=== PATIENT | male | born 1970 | race Caucasian/White ===

== ENCOUNTER 2017-11-21 06:14 | Observation (INO) | payer OTHER ==
[2017-11-21] MEDS ORDERED: NS 1,000 ML IV ONE (06:21)
[2017-11-21] MEDS ORDERED: ONDANSETRON 4 MG/2 ML VIAL IVP ONE (06:25)
[2017-11-21] MEDS ORDERED: HYDROmorphONE/DILAUDID 2 MG/ML INJ IVP ONE (06:25)
--- NOTE | 2017-11-21 06:30 | EDPHY ---
H & P Source: Patient - Medical/Surgical History Hx Asthma: No Hx Chronic Respiratory Disease: No Hx Diabetes: No Hx Cardiac Disease: No Hx Renal Disease: No Hx Cirrhosis: No Hx Alcoholism: No Hx HIV/AIDS: No Hx Splenectomy or Spleen Trauma: No Other PMH: hernia repair as a child - Social History Smoking Status: Former smoker <Shaka Benjamin - Last Filed: 11/21/17 07:08> <LionKahlil Mead - Last Filed: 11/21/17 08:08> Time Seen by Provider: 11/21/17 06:26 HPI/ROS: HPI CHIEF COMPLAINT: Abdominal pain. HISTORY OF PRESENT ILLNESS: 47-year-old male, history of kidney stones, presents emergency room lower abdominal pain. Patient states he developed lower abdominal pain sudden onset around 4:00 a.m. Woke him from sleep. He felt nauseous he did vomit 1 time. Pain was rather intense in his lower abdomen. He denies 1 flank or the other. Denies back pain. Denies testicular pain or urinary symptoms. Additionally reports over the last few weeks he has had some lower abdominal pain and GI upset. However not this bad. This woke him up from sleep. He reports to me this lower abdominal pain feels very similar to his previous kidney stone a few years ago. Past Medical History: Kidney stones Past Surgical History: Denies significant surgical Social History: Denies drugs alcohol tobacco. Family History: Noncontributory ROS REVIEW OF SYSTEMS: 10 Systems were reviewed and negative with the exception of the elements mentioned in the history of present illness. Exam Constitutional triage nursing summary reviewed, vital signs reviewed, awake/ alert. Eyes normal conjunctivae and sclera, EOMI, PERRLA. HENT normal inspection, atraumatic, moist mucus membranes, no epistaxis, neck supple/ no meningismus, no raccoon eyes. Respiratory clear to auscultation bilaterally, normal breath sounds, no respiratory distress, no wheezing. Cardiovascular rate normal, regular rhythm, no murmur, no edema, distal pulses normal. Gastrointestinal soft, non-tender, no rebound, no guarding, normal bowel sounds, no distension, no pulsatile mass. Genitourinary no CVA tenderness. Musculoskeletal no midline vertebral tenderness, full range of motion, no calf swelling, no tenderness of extremities, no meningismus, good pulses, neurovascularly intact. Skin pink, warm, & dry, no rash, skin atraumatic. Neurologic awake, alert and oriented x 3, AAOx3, moves all 4 extremities equally, motor intact, sensory intact, CN II-XII intact, normal cerebellar, normal vision, normal speech. Psychiatric normal mood/affect. Heme/Lymph/Immune no lymphadenopathy. Differential diagnosis includes but is not limited to and in no particular order : Bowel obstruction, appendicitis, gallbladder disease, diverticulitis, colitis , enteritis, perforated viscus, gastritis, GERD, esophagitis, urinary tract infection, pyelonephritis, kidney stones Medical Decision Making: Plan for this patient IV establishment IV fluid bolus 1 L normal saline, IV Dilaudid 0.5 mg for pain control, 4 mg IV Zofran for nausea, check basic blood work, CT scan abdomen pelvis with IV contrast to help delineate lower abdominal pain. Check UA. Re-evaluation: 0700: Signed over to Dr. Seymour 7am. Follow up CT and re-eval. (Shaka Benjamin) 0700: I assumed care of this patient from Dr. Benjamin at shift change. Per the patient's , the patient has been complaining of generalized abdominal pain for the past 2 weeks. However, there was more acute pain that began at 04:00 this morning. 0728: I spoke with Dr. Swanson, radiologist, regarding patient's abdominopelvic CT. There is a large, obstructing, left proximal ureteral kidney stone. 0751: Reassessed patient and discussed imaging findings. He is no longer in pain. I have discussed plan to consult with urology as he most likely need a stent for the size of the stone. 0.4mg PO Flomax administered. 1999: I consulted with Dr. Brooke, urologist, regarding this patient. This patient will need to be admitted to the hospital for further evaluation. Dr. Brooke will consult on this patient during his admission. 2000: Reassessed patient and discussed plan for admission, which he is comfortable with. 2004: Consulted with hospitalist service, Dr. Malave accepts admission of this patient. (Kahlil Seymour) Constitutional: Initial Vital Signs Temperature (C) 36.6 C 11/21/17 06:15 Heart Rate 45 L 11/21/17 06:15 Respiratory Rate 18 11/21/17 06:15 Blood Pressure 173/89 H 11/21/17 06:15 O2 Sat (%) 97 11/21/17 06:15 O2 Delivery Mode Room Air O2 (L/minute) 2 Allergies/Adverse Reactions: No Known Allergies Allergy (Verified 01/16/14 08:58) Home Medications: Medication Instructions Recorded NK [No Known Home Meds] 11/21/17 Medical Decision Making - Diagnostics Imaging: Discussed imaging studies w/ call or contact centre manager Radiologist, I viewed and interpreted images myself <Kahlil Seymour - Last Filed: 11/21/17 08:08> - Diagnostics Imaging Results: Imaging Impressions Abdomen CT 11/21/17 06:26 Impression: 1. Mild left hydroureteronephrosis secondary to an 8 x 7 mm obstructing calculus proximal left ureter. 2. Right kidney demonstrates 2 nonobstructing calyceal calculi up to 5 mm in size in the lower pole. No right hydronephrosis. 3. No CT evidence of appendicitis, abscess or bowel obstruction. Findings and recommendations discussed with Emergency Department physician, Dr. Kahlil Seymour at 0 7:30 hour, 11/21/2017. Final report concurs with initial preliminary interpretation. - Data Points Laboratory Results: Laboratory Results 11/21/17 06:30 11/21/17 06:30 11/21/17 11/21/17 11/21/17 07:37 06:30 06:30 WBC 8.14 10^3/uL 10^3/uL (3.80-9.50) RBC 5.45 10^6/uL 10^6/uL (4.40-6.38) Hgb 16.0 g/dL g/dL (13.7-17.5) Hct 46.2 % % (40.0-51.0) MCV 84.8 fL fL (81.5-99.8) MCH 29.4 pg pg (27.9-34.1) MCHC 34.6 g/dL g/dL (32.4-36.7) RDW 13.2 % % (11.5-15.2) Plt Count 199 10^3/uL 10^3/uL (150-400) MPV 9.4 fL fL (8.7-11.7) Neut % (Auto) 67.9 % % (39.3-74.2) Lymph % (Auto) 22.6 % % (15.0-45.0) [place] % (Auto) 5.9 % % (4.5-13.0) Eos % (Auto) 2.8 % % (0.6-7.6) Baso % (Auto) 0.4 % % (0.3-1.7) Nucleat RBC Rel Count 0.0 % % (0.0-0.2) Absolute Neuts (auto) 5.53 10^3/uL 10^3/uL (1.70-6.50) Absolute Lymphs (auto) 1.84 10^3/uL 10^3/uL (1.00-3.00) Absolute Monos (auto) 0.48 10^3/uL 10^3/uL (0.30-0.80) Absolute Eos (auto) 0.23 10^3/uL 10^3/uL (0.03-0.40) Absolute Basos (auto) 0.03 10^3/uL 10^3/uL (0.02-0.10) Absolute Nucleated RBC 0.00 10^3/uL 10^3/uL (0-0.01) Immature Gran % 0.4 % % (0.0-1.1) Immature Gran # 0.03 10^3/uL 10^3/uL (0.00-0.10) Sodium 141 mEq/L mEq/L (135-145) Potassium 3.9 mEq/L mEq/L (3.3-5.0) Chloride 105 mEq/L mEq/L (97-110) Carbon Dioxide 27 mEq/l mEq/l (22-31) Anion Gap 9 mEq/L mEq/L (8-16) BUN 13 mg/dL mg/dL (7-23) Creatinine 1.2 mg/dL mg/dL (0.7-1.3) Estimated GFR > 60 Glucose 114 mg/dL H mg/dL (70-100) Calcium 9.2 mg/dL mg/dL (8.5-10.4) Total Bilirubin 0.7 mg/dL mg/dL (0.1-1.4) Conjugated Bilirubin 0.2 mg/dL mg/dL (0.0-0.5) Unconjugated Bilirubin 0.5 mg/dL mg/dL (0.0-1.1) AST 28 IU/L IU/L (17-59) ALT 32 IU/L IU/L (21-72) Alkaline Phosphatase 66 IU/L IU/L (38-126) Total Protein 7.8 g/dL g/dL (6.3-8.2) Albumin 4.5 g/dL g/dL (3.5-5.0) Lipase 88 IU/L IU/L (23-300) Urine Color YELLOW Urine Appearance CLEAR Urine pH 6.0 (5.0-7.5) Ur Specific [place] > 1.035 H (1.002-1.030) Urine Protein 1+ H (NEGATIVE) Urine Ketones NEGATIVE (NEGATIVE) Urine Blood 3+ H (NEGATIVE) Urine Nitrate NEGATIVE (NEGATIVE) Urine Bilirubin NEGATIVE (NEGATIVE) Urine Urobilinogen NEGATIVE EU EU (0.2-1.0) Ur Leukocyte Esterase NEGATIVE (NEGATIVE) Urine RBC 50-182 /hpf H /hpf (0-3) Urine WBC 3-5 /hpf H /hpf (0-3) Ur Epithelial Cells NONE SEEN /lpf /lpf (NONE-1+) Urine Mucus 1+ /lpf /lpf (NONE-1+) Urine Glucose NEGATIVE (NEGATIVE) Medications Given: Discontinued Medications Hydromorphone HCl (Dilaudid) 0.5 mg IVP EDNOW ONE Stop: 11/21/17 06:26 Last Admin: 11/21/17 06:38 Dose: 0.5 mg Sodium Chloride (Ns) 1,000 mls @ 0 mls/hr IV EDNOW ONE; Wide Open PRN Reason: Protocol Stop: 11/21/17 06:22 Last Admin: 11/21/17 06:36 Dose: 1,000 mls Ondansetron HCl (Zofran) 4 mg IVP EDNOW ONE Stop: 11/21/17 06:26 Last Admin: 11/21/17 06:38 Dose: 4 mg Tamsulosin HCl (Flomax) 0.4 mg PO EDNOW ONE Stop: 11/21/17 07:58 Last Admin: 11/21/17 08:06 Dose: 0.4 mg Departure <Shaka Benjamin - Last Filed: 11/21/17 07:08> <Kahlil Seymour - Last Filed: 11/21/17 08:08> - Departure Disposition: [facility] Clinical Impression: Calculus of left kidney Abdominal pain Qualifiers: Abdominal location: left upper quadrant Qualified Code(s): R10.12 - Left upper quadrant pain Condition: Fair Instructions: Acute Abdominal Pain (ED) Referrals: Amy Rodríguez MD [Primary Care Provider] - As per Instructions
[2017-11-21 06:43] LABS: PLATELET COUNT 199 10^3/uL (150-400)
[2017-11-21] MEDS ORDERED: IOPAMIDOL (ISOVUE-300) 100 ML BTL ONE (06:59)
[2017-11-21] MEDS ORDERED: TAMSULOSIN HCL 0.4 MG CAP PO ONE (07:57)
[2017-11-21] MEDS ORDERED: ONDANSETRON DISINTEGRATING 4 MG TAB PO PRN (10:37)
[2017-11-21] MEDS ORDERED: HYDROmorphONE/DILAUDID 1 MG/ML INJ IVP PRN (10:37)
[2017-11-21] MEDS ORDERED: PROMETHAZINE HCL 25 MG/ML INJ IVP PRN ×2 (10:37→16:33)
[2017-11-21] MEDS ORDERED: ONDANSETRON 4 MG/2 ML VIAL IVP PRN ×2 (10:37→16:33)
[2017-11-21] MEDS ORDERED: ACETAMINOPHEN 325 MG TAB PO PRN (10:37)
[2017-11-21] MEDS ORDERED: NS 1,000 ML IV SCH (10:45)
--- NOTE | 2017-11-21 14:13 | GHP ---
DATE OF ADMISSION: 11/21/2017 CHIEF COMPLAINT: Abdominal pain. HISTORY OF PRESENT ILLNESS: Mr. Guevara is a 47-year-old male, history of kidney stones, presents to the emergency room with complaints of lower abdominal pain, states that this pain developed at about 4:00 a.m. and woke him from his sleep. He felt nauseous and vomited once. He denies any back pain. He denies any testicular pain or urinary symptoms. He denies any shortness of breath, dyspnea or ch est pain. He states that his pain feels similar to previous kidney stones in the past. PAST MEDICAL HISTORY: Kidney stone. PAST SURGICAL HISTORY: Hernia repair. SOCIAL HISTORY: The patient denies any alcohol or tobacco. FAMILY HISTORY: Reviewed and benign. REVIEW OF SYSTEMS: A comprehensive 10-point review of systems is noted and negative other than HPI. PHYSICAL EXAMINATION: GENERAL: The patient is alert. VITAL SIGNS: Afebrile at 36.5, pulse is 45, respiratory rate 16, blood pressure is 125/83, saturating 95% on room air. HEENT: Normocephalic and atraumatic. Mucosal membranes are moist. Pupils equal, round, reactive to light. NECK: Supple. RESPIRATORY: Lungs are clear to auscultation bilaterally. No rhonchi or wheezes noted. CARDIOVASCU LAR: S1, S2. No gallop or murmur appreciated. GASTROINTESTINAL: Abdomen bowel sounds are positive . Soft and nontender. There is no guarding or rigidity noted. EXTREMITIES: Within normal limits. There is no clubbing or cyanosis appreciated. SKIN: Without rashes or lesions. NEUROLOGICAL: The patient is focally intact with no abnormalities identified. ALLERGIES: None. HOME MEDICATIONS: None. LABORATORY EVALUATION: Benign. RADIOLOGICAL STUDIES: CT of the abdomen reviewed shows mild left hydroureteronephrosis secondary to an 8 x 7 mm obstructing calculi, the right kidney demonstrates 2 nonobstructing calculi. ASSESSMENT AND PLAN: Mr. Guevara is 47-year-old male admitted to the hospital secondary to obstructin g nephrolithiasis. He is going to receive a consultation from urology with intervention being perfor med today. He will be admitted, supportive management, and further action will be taken as needed du ring the patient's hospitalization. Deep venous thrombosis prophylaxis will be held at this time giv en the patient's need for intervention. I have discussed the patient's care with Dr. Kahlil Seymour of the emergency department, Mr. Guevara will be admitted under observation status as I anticipate his h ospitalization will be less than 48 hours. /[id number]/MODL
--- NOTE | 2017-11-21 15:25 | PDCONSULT ---
Community Service Director Note: [facility] left ureteral stone, pain Requested by Kahlil Seymour MD ER HPI 47M presented w week of feeling not well in his abdomen. Last night , pain in abdomen stayed and he came to ER where CT scan w contrast showed left obstructing proximal ureteral stone w associated hydro. Also nonobs rignt renal stone. Bilateral renal cysts. He has had emesis last night but no fevers or chills. Hx stone in the 2 yrs ago, he passed this on his own. PMH Hernia repair Stones ROS 10pt ROS performed, as stated in HPI, otherwise neg. FH/SH noncontributory PE AFVSS Gen NAD A&O CV regular Lungs Normal effort Abd soft Ext warm Labs: UA WBC 6-10, +RBCs. WBC 8 Cr 1.2 A/P Left ureteral stone, hydro, pain To the OR for left URS, laser stent. Discussed benefits of stone removal and obstruction relief. Discussed risks of bleeding, infection, pain, injury to urethral, bladder, ureter, injury to surrounding tissues, need for subsequent procedures. He understands and agrees to proceed. Discussed presence of right sided stones, we could treat those at a later date. Ivonne Brooke MD Urologic Surgery [facility]
[2017-11-21] MEDS ORDERED: MIDAZOLAM 2 MG/2 ML VIAL IVP ONE (15:30)
[2017-11-21] MEDS ORDERED: ceFAZolin 3 GM in D5W 100 ML IV ONE (15:31)
--- NOTE | 2017-11-21 15:31 | PDANEPAE ---
ANE History of Present Illness urolithiasis ANE Past Medical History - Pulmonary History Hx Oxygen in Use at Home: No Hx Sleep Apnea: No Sleep Apnea Screening Result - Last Documented: Negative - Endocrine History Hx Diabetes: No ANE Review of Systems Review of Systems: ANE Patient History - Allergies Allergies/Adverse Reactions: No Known Allergies Allergy (Verified 11/21/17 08:35) - Home Medications Home Medications: NK [No Known Home Meds] 11/21/17 [Last Taken Unknown] - NPO status NPO Since - Liquids (Date): 11/21/17 NPO Since - Liquids (Time): 00:00 NPO Since - Solids (Date): 11/21/17 NPO Since - Solids (Time): 00:00 - Smoking Hx Smoking Status: Former smoker ANE Labs/Vital Signs - Labs Result Diagrams: 11/21/17 06:30 11/21/17 06:30 - Vital Signs Blood Pressure: 125/83 Heart Rate: 45 Respiratory Rate: 16 O2 Sat (%): 95 Height: 180.34 cm Weight: 104.326 kg ANE Physical Exam - Airway Neck exam: FROM Mallampati Score: Class 2 Mouth exam: normal dental/mouth exam - Pulmonary Pulmonary: no respiratory distress - Cardiovascular Cardiovascular: regular rate and rhythym - ASA Status ASA Status: I ANE Anesthesia Plan Anesthesia Plan: general endotracheal anesthesia
[2017-11-21] MEDS ORDERED: ROCURONIUM 50 MG/5 ML VIAL ONE (15:33)
[2017-11-21] MEDS ORDERED: fentaNYL 100 MCG/2 ML INJ ONE ×3 (15:33→16:26)
[2017-11-21] MEDS ORDERED: PROPOFOL/EMULSION 500 MG/50 ML BOTTLE IV ONE (15:34)
[2017-11-21] MEDS ORDERED: IOPAMIDOL (ISOVUE-M 300) 15 ML VIAL ONE ×2 (15:36)
[2017-11-21] MEDS ORDERED: LIDOCAINE 2% JELLY 20 ML (UROJECT) ONE ×2 (15:36→15:44)
--- NOTE | 2017-11-21 15:39 | ASMTCMCOM ---
CM Note CM Note Notes: Pt was admitted with a L ureteral stone. Hx of kidney stones. Surgery planned. Pt lives with his in [place]. CM will follow for any d/c needs. D/C plan: TBD but anticipate home independent Date Signed: 11/21/2017 03:38 PM Electronically Signed By:NIRMALA Sethi
[2017-11-21] MEDS ORDERED: CEFAZOLIN 1 GM/DEXTROSE/50 ML BAG IV ONE (15:43)
[2017-11-21] MEDS ORDERED: CEFAZOLIN 2 GM/DEXTROSE/100 ML BAG IV ONE (15:44)
[2017-11-21] MEDS ORDERED: ceFAZolin 2 GM/DEXTROSE 100 ML IV ONE ×2 (15:45→16:00)
[2017-11-21] MEDS ORDERED: MIDAZOLAM 2 MG/2 ML VIAL ONE (15:49)
[2017-11-21] MEDS ORDERED: HYDROCODONE/APAP 5/325 TAB PO PRN (16:33)
[2017-11-21] MEDS ORDERED: NALOXONE HCL 0.4 MG/ML INJ IVP PRN (16:33)
[2017-11-21] MEDS ORDERED: fentaNYL 100 MCG/2 ML INJ IVP PRN (16:33)
[2017-11-21] MEDS ORDERED: DIAZEPAM 5 MG/ML 1 ML SYR IVP PRN (16:33)
[2017-11-21] MEDS ORDERED: MEPERIDINE 25 MG/0.5 ML AMP IVP PRN (16:33)
[2017-11-21] MEDS ORDERED: ESMOLOL HCL 100 MG/10 ML VIAL IV ONE (16:54)
--- NOTE | 2017-11-21 16:55 | POSTOPPROG ---
Post Op Note Date of Operation: 11/21/17 Surgeon: Ivonne Brooke Anesthesia: GET(General Endotracheal) Pre-op Diagnosis: left ureteral stone Post-op Diagnosis: same Indication: left ureteral stone, pain Procedure: cysto, L URS, laser, stent, RGP, fluoroscopy Findings: left stone dusted, ureter very edematous from stone Inf/Abcess present in the surg proc area at time of surgery?: No Depth: Organ Space (Urologic system) Complications: None, patient tolerated procedure well
[2017-11-21] MEDS ORDERED: HYDROmorphONE/DILAUDID 2 MG/ML INJ IVP PRN (17:00)
[2017-11-21] MEDS ORDERED: HYDROmorphONE/DILAUDID 2 MG/ML INJ ONE (17:04)
--- NOTE | 2017-11-21 17:06 | POSTANESTH ---
Post Anesthetic Evaluation Cardiovascular Status: Normal, Stable Respiratory Status: Normal, Stable Level of Consciousness/Mental Status: Can Participate in Eval Pain Control: Adequate, Prn Tx Ordered Nausea/Vomiting Control: Adequate, Prn Tx Ordered Complications Possibly Related to Anesthesia: None Noted
[2017-11-21] MEDS: HYDROmorphONE/DILAUDID 2 MG/ML INJ IVP PRN ×3 (17:07→17:39)
[2017-11-21] MEDS ORDERED: HYDROCODONE/APAP 5/325 TAB ONE (17:41)
[2017-11-21] MEDS: TAMSULOSIN HCL 0.4 MG CAP PO SCH (18:18)
[2017-11-21] MEDS: OXYBUTYNIN CHLORIDE 5 MG TAB PO PRN ×2 (18:18→22:42)
[2017-11-21] MEDS: PHENAZOPYRIDINE HCL 200 MG TAB PO PRN (18:24)
[2017-11-21] MEDS: HYDROmorphone HCL 0.5 MG/0.5 ML SYR IVP PRN ×2 (19:37→23:28)
[2017-11-21] MEDS: KETOROLAC 15 MG/1 ML SDV IVP SCH ×2 (20:16→23:27)
[2017-11-22] MEDS: HYDROmorphone HCL 0.5 MG/0.5 ML SYR IVP PRN ×2 (03:34→07:43)
--- NOTE | 2017-11-22 05:20 | GOP ---
DATE OF OPERATION: 11/21/2017 SURGEON: Ivonne Brooke MD ANESTHESIA: General. PREOPERATIVE DIAGNOSIS: Left ureteral stone. POSTOPERATIVE DIAGNOSIS: Left ureteral stone. PROCEDURE PERFORMED: 1. Cystoscopy. 2. Left ureteroscopy. 3. Laser lithotripsy. 4. Placement of stent. 5. Retrograde pyelogram. 6. Intraoperative fluoroscopy. FINDINGS: A left proximal stone that was lasered, and the left ureter where the stone was lodged was very edematous and inflamed from the stone. SPECIMENS: None. INDICATIONS: The patient had over a week of abdominal pain that he thought was GI-related. It worsened last night and he presented to the ER where a CT with contrast was obtained of the abdomen and pelvis, and it showed a left proximal ureteral stone with associated hydronephrosis. He elected to have the stone treated. The rationale, risks, and benefits were discussed in detail including risks that were bleeding, infection, pain, injury to the urethra, the bladder, the ureter, inability to gain access to the stone, need for subsequent procedures. He understood these and agreed to proceed. DESCRIPTION OF PROCEDURE: The patient was taken back to the cystoscopy suite, placed on the cystoscopy table in a supine position. General anesthesia induced without complications. Time-out performed and core measures satisfied including placement of a Naif Hugger, SCDs, and administration of 3 g Ancef antibiotics. He was brought to the end of the table, placed in dorsal lithotomy position. All pressure points padded. Genitalia draped and prepped in the standard surgical fashion with Betadine. A rigid cystoscope easily cannulated his urethral meatus and was advanced atraumatically into the bladder. Osorio cystoscopy performed and there were no lesions, cellules, trabeculations, or abnormalities in the bladder. The left and right ureteral orifices were in their expected anatomical positions. Attention was focused on the left ureteral orifice and a retrograde pyelogram was performed, and there was a slight area of filling defect in the proximal ureter, which is approximately where the stone should have been, according to the CT scan just a few hours ago, so two 0.035 Glidewires were then advanced into the left collecting system. A ureteral access sheath was advanced over a Glidewire with fluoroscopic guidance up to the level where I felt that stone was seen on retrograde pyelogram. The flexible scope was advanced through the sheath and I did see the ureteral stone at that point. There was significant edema in ureter where the stone was, and the stone had bits of tissue that it had sloughed off from rubbing against the ureter around it indicating that the stone had significantly irritated the wall of the ureter. I advanced a laser fiber to the level of the stone and was able to start to dust the stone into very tiny fragments. I advanced a basket to remove begin to extract some of the small fragments. I basketed a small fragment, and began to remove my basket and scope and had friction at the entry of the access sheath when I was removing the scope through the sheath. I was able to externalize the basket and scope but the stone had not come with the basket. I went back up the access sheath and noted that the ureter appeared even more edematous and possibly traumatized from the scope removal at the access sheath. At this point , I felt it would be safest to not continue with further removal or dusting of the stone and just place a stent and possibly return later for stone clearance. I do feel the stones fragments were dusted mainly and what remained was small but I could not confirm this visually. I had a safety wire in place. I removed the sheath with the scope, examining the more distal wall of the ureter , and it was normal appearing. The safety wire was still up and I was able to back load it into the cystoscope, and then placed a 6-Maltese multivariable stent with fluoroscopic and cystoscopic guidance. There was a nice curl in the renal pelvis, a nice curl in the bladder. At this point, his bladder was then emptied and the procedure was considered complete. He was awakened from anesthesia and transferred to PACU in good condition. He will need the stent in place for at least 2 weeks, after which we can re- evaluate stone burden and possibly pursue further stone clearance. COMPLICATIONS: None. The patient tolerated the procedure well. /[id number]/MODL MTDD
[2017-11-22] MEDS: OXYBUTYNIN CHLORIDE 5 MG TAB PO PRN (05:25)
[2017-11-22] MEDS: KETOROLAC 15 MG/1 ML SDV IVP SCH ×2 (05:25→11:34)
[2017-11-22] MEDS: TAMSULOSIN HCL 0.4 MG CAP PO SCH (05:38)
[2017-11-22] MEDS: PHENAZOPYRIDINE HCL 200 MG TAB PO PRN (05:38)
[2017-11-22 08:27] VITALS: BP 132/92
--- NOTE | 2017-11-22 10:03 | ASDISCHSUM ---
Discharge Information Plan Status:Home with No Needs Medically Cleared to Leave:11/22/2017 Discharge Date:11/22/2017 CM D/C Disposition:Home, Routine, Self-Care ADT D/C Disposition:Home, Routine, Self-Care Projected Discharge Date:11/22/2017 Transportation at D/C: Discharge Delay Reason: Follow-Up Date:11/22/2017 Discharge Slot: Final Diagnosis: Placement Information Patient Contact Information Contact Name:IGNACIO Relationship: Address:[address] City:[place] Alternate Phone: [facility]/Zip Code:[place] [address] Email: Financial Information Financial Class:HMO and PPO Plans Primary Plan Desc:[employer] Primary Plan Number:[id number] Secondary Plan Desc: Secondary Plan Number: Assessment Information LACE LACE Length of stay for Answers: 1 day current admission Comorbidities - select Answers: Other Notes: kidney stones all that apply # of Emergency department Answers: 1-2 visits in the last 6 months Score: 3 Date Signed: 11/22/2017 10:02 AM Electronically Signed By:Jennifer De La Cruz RN [facility] Progress Note CM Note CM Note Notes: Pt was admitted with a L ureteral stone. Hx of kidney stones. Surgery planned. Pt lives with his in [place]. CM will follow for any d/c needs. D/C plan: TBD but anticipate home independent Date Signed: 11/21/2017 03:38 PM Electronically Signed By:NIRMALA Sethi Intervention Information
--- NOTE | 2017-11-22 10:04 | ASMTCMCOM ---
CM Note CM Note Notes: Patient medically cleared for discharge. No needs identified. CM available should needs arise. Plan: Home independently. Date Signed: 11/22/2017 10:04 AM Electronically Signed By:Jennifer De La Cruz RN
--- NOTE | 2017-11-22 14:02 | GDS ---
DISCHARGE DIAGNOSIS: Nephrolithiasis, status post lithotripsy. CONSULTANTS: Dr. Ivonne Brooke, Urology. PROCEDURES: 1. Cystoscopy with left ureteroscopy, laser lithotripsy, and ureteral stent placement with retrograd e pyelogram performed November 21, 2017, by Dr. Ivonne Brooke. A left proximal stone was dusted. The ureter where the stone was lodged was very edematous and inflamed from stone. HISTORY OF PRESENT ILLNESS: For details, please see history and physical dated November 21, 2017. In brief, the patient is a 47-year-old male with a history of prior kidney stones who presented to [facility] emergency department with abdominal pain, nausea, and vomiting. CT demonstrated a 7 x 8 mm obstruc ting calculi in the mid left ureter with hydroureteronephrosis. He had no fevers, chills, or signs o f infection. He was admitted to the hospital for further management. HOSPITAL COURSE: Patient was admitted to the med/surgical unit. Urology consult obtained. He under went lithotripsy with ureteral stent placement as above. He had hematuria, but no significant pyuria with negative nitrates and no evidence of infection. He remained afebrile. His pain is improved af ter lithotripsy. His vital signs are stable and wishes to go home today after intervention. DISPOSITION: Patient is discharged home in stable condition. FOLLOWUP: 1. Dr. Ivonne Brooke in 1 to 2 weeks for stent removal. 2. Dr. Amy Rodríguez, primary care. DISCHARGE MEDICATIONS: [facility] for [facility]. New medication s on discharge include Tylenol 650 mg p.o. q.4 hours p.r.n., [place] 1 tablet q.4 hours p.r.n. #10 no r efills, Pyridium 200 mg p.o. q.8 hours p.r.n. #30 no refills, and Flomax 0.4 mg daily #14 no refills. /[id number]/MODL
== END 2017-11-22 12:35 | disposition home or self-care (01) ==
LOC: F1N 09:49
PROVIDERS: ADMIT Family Medicine; ATTEND Family Medicine
PROC: 0TC78ZZ Extirpation of Matter from Left Ureter, Via Natural or Artificial Opening Endoscopic (ICD-10-PCS; principal; 2017-11-21 15:00)
PROC: 0T9780Z Drainage of Left Ureter with Drainage Device, Via Natural or Artificial Opening Endoscopic (ICD-10-PCS; principal; 2017-11-21 15:00)
DX: N20.2 Calculus of kidney with calculus of ureter (principal); Z87.891 Personal history of nicotine dependence
CPT/HCPCS: 52352; 52356; 74177; 76001; 96361; 96374; 96375; 96376; 99285; C1758; C1769; C1894; G0378; C2625; J0690; J1170; J1885; J2250; J2405; J2550; J2704; J3010; Q9967

== ENCOUNTER 2017-11-25 00:17 | Observation (INO) | payer OTHER ==
--- NOTE | 2017-11-25 00:50 | EDPHY ---
H & P Stated Complaint: lithotripsy with a stent on Thursday still having pain Time Seen by Provider: 11/25/17 00:50 HPI/ROS: HPI CHIEF COMPLAINT: Constipation HISTORY OF PRESENT ILLNESS: This is a very pleasant 47-year-old male, on 11/22, patient had a stent placed of left ureter, and lithotripsy of 8 obstructing left ureteral stone. He has been taking Shirley for pain control. And states that he has not had a bowel movement prior to the surgery. He states his last bowel movement was sometime before the surgery on on Thursday or Thursday. Since then he has been taking Shirley pain control and has not had a bowel movement. Patient states he still has an appetite has been eating a lot but no bowel movement. He did take a dose of ibuprofen, as well as Mag citrate however it has not had a bowel movement. Presents emergency room stating he feels very full constipated. Denies any vomiting. Denies fever. Denies urinary symptoms. Past Medical History: Kidney stones Past Surgical History: Recent ureteral stent left-sided and lithotripsy. Social History: Denies drugs alcohol tobacco. Family History: Noncontributory. ROS REVIEW OF SYSTEMS: 10 Systems were reviewed and negative with the exception of the elements mentioned in the history of present illness. Exam Constitutional triage nursing summary reviewed, vital signs reviewed, awake/ alert. Eyes normal conjunctivae and sclera, EOMI, PERRLA. HENT normal inspection, atraumatic, moist mucus membranes, no epistaxis, neck supple/ no meningismus, no raccoon eyes. Respiratory clear to auscultation bilaterally, normal breath sounds, no respiratory distress, no wheezing. Cardiovascular rate normal, regular rhythm, no murmur, no edema, distal pulses normal. Gastrointestinal soft, nontender on exam, hypoactive bowel sounds no rebound, no guarding, no distension, no pulsatile mass. Genitourinary no CVA tenderness. Musculoskeletal no midline vertebral tenderness, full range of motion, no calf swelling, no tenderness of extremities, no meningismus, good pulses, neurovascularly intact. Skin pink, warm, & dry, no rash, skin atraumatic. Neurologic awake, alert and oriented x 3, AAOx3, moves all 4 extremities equally, motor intact, sensory intact, CN II-XII intact, normal cerebellar, normal vision, normal speech. Psychiatric normal mood/affect. Heme/Lymph/Immune no lymphadenopathy. Differential Diagnosis: Includes but is not limited to in a particular order constipation, fecal impaction, ileus Medical Decision Making: Plan for this patient KUB, basic blood work, IV establishment IV fluid bolus, check UA. Re-evaluate. Re-evaluation: KUB reviewed shows abnormal bowel gas pattern. Left ureteral stent appears in good position. Given the abnormal bowel gas pattern on the KUB will proceed with CT scan abdomen pelvis with IV contrast for acute abdominal pain. CT scan abdomen pelvis with IV contrast called to me by Dr. Swanson: This shows free air, retroperitoneal air around the proximal left ureter and renal pelvis. Additionally there is air in the bladder. Free fluid present. Also left- sided perinephric stranding. Please see full dictation for details of CT report. Given the patient's urinalysis has leukocytosis esterase. Mild systemic white count and CT scan findings I have ordered the patient urine culture, IV Rocephin. Additionally do the CT results are will contact Urology. 0241: I spoke with Urology Dr. Luis Carlos Aldana, reviewed the case in detail, went over the blood work, urinalysis and CT scan. He did not feel that the retroperitoneum air is anything significant at this time does not need surgery emergently. Given the patient's elevated systemic white count, and urinalysis indicating whites and reds, and leukocyte Estrace and retroperitoneal air around the proximal ureter and decided to admit the patient comma for pain control overnight, and observation. And for Urology to see. Spoke with the hospitalist service Dr. José, Agrees to admit. Source: Patient - Personal History Current Tetanus/Diphtheria Vaccine: No Current Tetanus Diphtheria and Acellular Pertussis (TDAP): No - Medical/Surgical History Hx Asthma: No Hx Chronic Respiratory Disease: No Hx Diabetes: No Hx Cardiac Disease: No Hx Renal Disease: No Hx Cirrhosis: No Hx Alcoholism: No Hx HIV/AIDS: No Hx Splenectomy or Spleen Trauma: No Other PMH: hernia repair as a child, kidney stones with lithotripsy and stent place - Social History Smoking Status: Former smoker Constitutional: Initial Vital Signs Temperature (C) 37.5 C 11/25/17 00:18 Heart Rate 78 11/25/17 00:18 Respiratory Rate 16 11/25/17 00:18 Blood Pressure 139/90 H 11/25/17 00:18 O2 Sat (%) 95 11/25/17 00:18 O2 Delivery Mode Room Air Allergies/Adverse Reactions: No Known Allergies Allergy (Verified 11/25/17 00:22) Home Medications: Medication Instructions Recorded Hydrocodone/Acetaminophen [Shirley 1 each PO Q4 PRN #10 tablet 11/22/17 5/325 (*)] Tamsulosin HCl [Flomax 0.4 MG (*)] 0.4 mg PO DAILY #14 cap 11/22/17 Phenazopyridine HCl [Pyridium] 200 mg PO TID PRN 11/25/17 Cephalexin [Keflex (*)] 500 mg PO TID #21 cap 11/26/17 Ondansetron Odt [Zofran Odt 4 mg 4 mg PO Q4HRS PRN #20 tab 11/26/17 (*)] oxyCODONE IR [Oxycodone Ir (*)] 5 - 10 mg PO Q3HRS PRN #30 tab 11/26/17 Medical Decision Making - Data Points Laboratory Results: Laboratory Results 11/25/17 01:00 11/25/17 01:00 Medications Given: Discontinued Medications Acetaminophen (Tylenol) 650 mg PO Q4HRS PRN PRN Reason: Pain, Mild/Fever, Can Take PO Stop: 05/24/18 02:40 Last Admin: 11/25/17 16:50 Dose: 650 mg Hydromorphone HCl (Dilaudid) 0.5 - 1 mg IVP Q3HRS PRN PRN Reason: Pain, Severe Unable to Take PO Stop: 12/05/17 08:39 Last Admin: 11/25/17 08:50 Dose: 1 mg Sodium Chloride (Ns) 1,000 mls @ 0 mls/hr IV EDNOW ONE; Wide Open PRN Reason: Protocol Stop: 11/25/17 00:58 Last Admin: 11/25/17 01:03 Dose: 1,000 mls Ceftriaxone Sodium/Dextrose (Rocephin 1 Gm (Premix)) 50 mls @ 100 mls/hr IV EDNOW ONE PRN Reason: Protocol Stop: 11/25/17 02:33 Last Admin: 11/25/17 02:18 Dose: 50 mls Ceftriaxone Sodium/Dextrose (Rocephin 1 Gm (Premix)) 50 mls @ 100 mls/hr IV DAILY RUDY PRN Reason: Protocol Stop: 12/26/17 08:59 Last Admin: 11/26/17 09:03 Dose: 50 mls Morphine Sulfate (Morphine) 1 - 2 mg IVP Q1HR PRN PRN Reason: Pain, Severe Unable to Take PO Stop: 12/05/17 02:40 Last Admin: 11/25/17 08:09 Dose: 2 mg Ondansetron HCl (Zofran Odt) 4 mg PO Q4HRS PRN PRN Reason: Nausea/Vomiting, Use 1st Stop: 05/24/18 02:40 Last Admin: 11/25/17 10:26 Dose: 4 mg Oxycodone HCl (Oxycodone Ir) 5 - 10 mg PO Q3HRS PRN PRN Reason: Pain, Severe Able to Take PO Stop: 12/05/17 02:40 Last Admin: 11/25/17 07:27 Dose: 5 mg Senna/Docusate Sodium (Senokot-S) 1 - 2 tab PO BID RUDY PRN Reason: Protocol Stop: 05/24/18 08:59 Last Admin: 11/26/17 09:04 Dose: Not Given Tamsulosin HCl (Flomax) 0.4 mg PO DAILY [facility] Stop: 05/24/18 10:29 Last Admin: 11/26/17 09:01 Dose: 0.4 mg Departure - Departure Disposition: [facility] Acute Clinical Impression: Retroperitoneal air UTI (urinary tract infection) Qualifiers: Urinary tract infection type: acute cystitis Hematuria presence: with hematuria Qualified Code(s): N30.01 - Acute cystitis with hematuria Abdominal pain Qualifiers: Abdominal location: left lower quadrant Qualified Code(s): R10.32 - Left lower quadrant pain Condition: Fair
[2017-11-25] MEDS ORDERED: NS 1,000 ML IV ONE (00:57)
[2017-11-25 01:13] LABS: PLATELET COUNT 172 10^3/uL (150-400)
[2017-11-25] MEDS ORDERED: IOPAMIDOL (ISOVUE-300) 100 ML BTL ONE ×2 (01:18→14:12)
[2017-11-25] MEDS ORDERED: ONDANSETRON 4 MG/2 ML VIAL IVP PRN (02:41)
[2017-11-25] MEDS ORDERED: ACETAMINOPHEN 325 MG TAB PO PRN (02:41)
[2017-11-25] MEDS ORDERED: oxyCODONE IR 5 MG TAB PO PRN (02:41)
[2017-11-25] MEDS ORDERED: ONDANSETRON DISINTEGRATING 4 MG TAB PO PRN (02:41)
--- NOTE | 2017-11-25 02:58 | PDGENHP ---
History and Physical - Chief Complaint Abdominal pain - History of Present Illness 47 yo M w/ hx of urolithiasis presents with abdominal pain. Patient had a lithotripsy and stent placement performed on 11/21 for a kidney stone. Since that time he has experienced ongoing, severe L sided abdominal pain. He comes in for evaluation today as his pain has not been improving. He feels like he is constipated due to the Oxycodone he was taking at home. He denies infectious symptoms such as fevers, chills, dysuria, frequency, etc. Case discussed with ED physician Dr. Ross; records reviewed in EMR. History Information - Allergies/Home Medication List Allergies/Adverse Reactions: No Known Allergies Allergy (Verified 11/25/17 00:22) I have personally reviewed and updated: family history, medical history - Past Medical History Additional medical history: Urolithiasis - Surgical History Additional surgical history: Lithotripsy, stent - Family History Additional family history: Asked, denies - Social History Smoking Status: Former smoker Review of Systems Review of Systems: ROS: 10pt was reviewed & negative except for what was stated in HPI & below Physical Exam Physical Exam: Temp Pulse Resp BP Pulse Ox 37.5 C 67 18 121/83 H 95 11/25/17 00:18 11/25/17 01:50 11/25/17 01:50 11/25/17 01:50 11/25/17 01:50 Constitutional: no apparent distress, not in pain Eyes: PERRL, EOMI Ears, Nose, Mouth, Throat: moist mucous membranes, no oral mucosal ulcers Cardiovascular: regular rate and rhythym, no murmur, rub, or gallop Respiratory: no respiratory distress, clear to auscultation Gastrointestinal: normoactive bowel sounds, soft, non-tender abdomen Genitourinary: no bladder tenderness, other (No CVAT) Skin: warm, normal color Musculoskeletal: full muscle strength, no muscle tenderness Neurologic: AAOx3, CN II-XII Intact Psychiatric: interacting appropriately, not anxious Lab Data & Imaging Review 11/25/17 01:00 11/25/17 01:00 WBC 12.62 10^3/uL (3.80-9.50) H 11/25/17 01:00 RBC 5.31 10^6/uL (4.40-6.38) 11/25/17 01:00 Hgb 15.8 g/dL (13.7-17.5) 11/25/17 01:00 Hct 43.8 % (40.0-51.0) 11/25/17 01:00 MCV 82.5 fL (81.5-99.8) 11/25/17 01:00 MCH 29.8 pg (27.9-34.1) 11/25/17 01:00 MCHC 36.1 g/dL (32.4-36.7) 11/25/17 01:00 RDW 12.7 % (11.5-15.2) 11/25/17 01:00 Plt Count 172 10^3/uL (150-400) 11/25/17 01:00 MPV 8.9 fL (8.7-11.7) 11/25/17 01:00 Neut % (Auto) 80.2 % (39.3-74.2) H 11/25/17 01:00 Lymph % (Auto) 12.0 % (15.0-45.0) L 11/25/17 01:00 Dillon % (Auto) 6.4 % (4.5-13.0) 11/25/17 01:00 Eos % (Auto) 0.9 % (0.6-7.6) 11/25/17 01:00 Baso % (Auto) 0.2 % (0.3-1.7) L 11/25/17 01:00 Nucleat RBC Rel Count 0.0 % (0.0-0.2) 11/25/17 01:00 Absolute Neuts (auto) 10.12 10^3/uL (1.70-6.50) H 11/25/17 01:00 Absolute Lymphs (auto) 1.52 10^3/uL (1.00-3.00) 11/25/17 01:00 Absolute Monos (auto) 0.81 10^3/uL (0.30-0.80) H 11/25/17 01:00 Absolute Eos (auto) 0.11 10^3/uL (0.03-0.40) 11/25/17 01:00 Absolute Basos (auto) 0.02 10^3/uL (0.02-0.10) 11/25/17 01:00 Absolute Nucleated RBC 0.00 10^3/uL (0-0.01) 11/25/17 01:00 Immature Gran % 0.3 % (0.0-1.1) 11/25/17 01:00 Immature Gran # 0.04 10^3/uL (0.00-0.10) 11/25/17 01:00 Sodium 138 mEq/L (135-145) 11/25/17 01:00 Potassium 3.9 mEq/L (3.3-5.0) 11/25/17 01:00 Chloride 103 mEq/L (97-110) 11/25/17 01:00 Carbon Dioxide 25 mEq/l (22-31) 11/25/17 01:00 Anion Gap 10 mEq/L (8-16) 11/25/17 01:00 BUN 13 mg/dL (7-23) 11/25/17 01:00 Creatinine 1.0 mg/dL (0.7-1.3) 11/25/17 01:00 Estimated GFR > 60 11/25/17 01:00 Glucose 121 mg/dL (70-100) H 11/25/17 01:00 Calcium 9.4 mg/dL (8.5-10.4) 11/25/17 01:00 Total Bilirubin 1.1 mg/dL (0.1-1.4) 11/25/17 01:00 Conjugated Bilirubin 0.2 mg/dL (0.0-0.5) 11/25/17 01:00 Unconjugated Bilirubin 0.9 mg/dL (0.0-1.1) 11/25/17 01:00 AST 23 IU/L (17-59) 11/25/17 01:00 ALT 25 IU/L (21-72) 11/25/17 01:00 Alkaline Phosphatase 67 IU/L (38-126) 11/25/17 01:00 Total Protein 7.3 g/dL (6.3-8.2) 11/25/17 01:00 Albumin 4.2 g/dL (3.5-5.0) 11/25/17 01:00 Lipase 28 IU/L (23-300) 11/25/17 01:00 Urine Color RED 11/25/17 01:30 Urine Appearance HAZY 11/25/17 01:30 Urine pH 6.0 (5.0-7.5) 11/25/17 01:30 Ur Specific [place] 1.012 (1.002-1.030) 11/25/17 01:30 Urine Protein 2+ (NEGATIVE) H 11/25/17 01:30 Urine Ketones TRACE (NEGATIVE) H 11/25/17 01:30 Urine Blood 3+ (NEGATIVE) H 11/25/17 01:30 Urine Nitrate NEGATIVE (NEGATIVE) 11/25/17 01:30 Urine Bilirubin NEGATIVE (NEGATIVE) 11/25/17 01:30 Urine Urobilinogen NEGATIVE EU (0.2-1.0) 11/25/17 01:30 Ur Leukocyte Esterase 2+ (NEGATIVE) H 11/25/17 01:30 Urine RBC 50-182 /hpf (0-3) H 11/25/17 01:30 Urine WBC 50-182 /hpf (0-3) H 11/25/17 01:30 Ur Epithelial Cells NONE SEEN /lpf (NONE-1+) 11/25/17 01:30 Urine Bacteria 1+ /hpf (NONE SEEN) H 11/25/17 01:30 Urine Mucus TRACE /lpf (NONE-1+) 11/25/17 01:30 Urine Glucose NEGATIVE (NEGATIVE) 11/25/17 01:30 Imaging Review: CT A/P Prelim LEFT URETERAL STENT IN PLACE RESIDUAL STONE FRAGMENT IN LEFT RENAL PELVIS NEW LEFT RETROPERITONEAL GAS SURROUNDING PROXIMAL URETER AND NEAR LEFT RENAL PELVIS SUGGESTING PERFORATION OF LEFT URETER CANNOT EXCLUDE EARLY INFECTION SINCE MORE PERINEPHRIC FLUID AND GAS NO BOWEL OBSTRUCTION DISCUSSED WITH FOUZIA AT 0200 Assessment & Plan Assessment: 47 yo M w/ hx of urolithiasis and recent stent placement presents with abdominal pain and found to have retroperitoneal free air. Plan: 1. Free retroperitoneal air - Per radiology, this is most likely related to ureteral perforation resulting from recent lithotripsy and stent placement. Patient is hemodynamically stable with minimal symptoms at this time. - Admit for observation - Urology consulted, will see patient in the morning. They do not feel this is an urgent surgical matter 2. Abdominal pain - I suspect this is multifactorial from residual stone seen on CT, constipation, and possibly #1 as described above. - Bowel regimen ordered - Oxycodone, morphine PRN 3. Asymptomatic pyuria - UA abnormal but no symptoms of infection currently. 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 - Urine culture pending - Will continue CTX for now noting ureteral perforation, will await urology recs Diet - Regular Code - Full Ppx - SCDs Dispo - Admit under observation status
[2017-11-25] MEDS ORDERED: BISACODYL 10 MG SUPP PR PRN (03:03)
[2017-11-25] MEDS ORDERED: MAGNESIUM HYDROXIDE 30 ML UDCUP PO PRN (03:03)
[2017-11-25] MEDS ORDERED: LACTULOSE 20 GM/30 ML UDCUP PO PRN (03:03)
[2017-11-25] MEDS ORDERED: POLYETHYLENE GLYCOL 3350 17 GM PKT PO PRN (03:03)
[2017-11-25 06:42] LABS: PLATELET COUNT 176 10^3/uL (150-400)
[2017-11-25] MEDS: SENNOSIDES/DOCUSATE SODIUM TAB PO SCH ×2 (08:12→19:33)
[2017-11-25] MEDS ORDERED: HYDROmorphONE/DILAUDID 2 MG/ML INJ IVP PRN (08:40)
[2017-11-25] MEDS: TAMSULOSIN HCL 0.4 MG CAP PO SCH (12:50)
--- NOTE | 2017-11-25 12:59 | ASMTCASEMG ---
Living Arrangements What is your living Answers: With Spouse arrangement? Who do you live with? Type Of Residence What kind of residence do Answers: House you live in? Discharge Plan Comments Coordination Status Comments Notes: Pt is a 47 y/o man admitted for abdominal pain. Pt had a lithotripsy and stent placed on 11/21/17 for kidney stone. Pt has been experiencing abdominal pain since then. Pt will most likely d/c independent when medically stable. No therapies ordered at this time. CM available for changes. Plan: Independent Date Signed: 11/25/2017 12:27 PM Electronically Signed By:KARTHIK Guidry
--- NOTE | 2017-11-25 13:14 | HOSPPROG ---
Hospitalist Progress Note Assessment/Plan: 47 yo M w/ hx of urolithiasis and recent stent placement presents with abdominal pain and found to have retroperitoneal free air. Plan: 1. Free retroperitoneal air - Per radiology, this is most likely related to ureteral perforation resulting from recent lithotripsy and stent placement. Patient is hemodynamically stable with minimal symptoms at this time. - Urology consulted, awaiting consultation 2. Abdominal pain - I suspect this is multifactorial from residual stone seen on CT, constipation, and possibly #1 as described above. - Bowel regimen ordered - Oxycodone -Stop Morphine, change to Dilaudid as pain was not well managed 3. Asymptomatic pyuria - UA abnormal but no symptoms of infection currently. 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 - Urine culture pending - Will continue CTX for now noting ureteral perforation, will await urology recs Diet - Regular Code - Full Ppx - SCDs Dispo - pending Urology evaluation. Will likely need to keep overnight even if no surgical plan given pain control is requiring IV Dilaudid at this time. Will monitor to determine pain requirements Subjective: lots of pain. no cp or sob. Objective: Vital Signs Temp Pulse Resp BP Pulse Ox 37.2 C 76 15 115/74 94 11/25/17 12:15 11/25/17 12:15 11/25/17 12:15 11/25/17 12:15 11/25/17 12:15 Laboratory Results 11/25/17 06:08 11/25/17 06:08 11/24/17 11/25/17 11/26/17 05:59 05:59 05:59 Intake Total 1500 Output Total 510 Balance 1500 -510 - Physical Exam Constitutional: no apparent distress Eyes: PERRL Ears, Nose, Mouth, Throat: moist mucous membranes, hearing normal Cardiovascular: regular rate and rhythym, No edema Respiratory: no respiratory distress, no rales or rhonchi, clear to auscultation Gastrointestinal: normoactive bowel sounds Skin: warm Neurologic: AAOx3 Psychiatric: interacting appropriately, not anxious, not encephalopathic Lymph, Heme, Immunologic: No petechiae ICD10 Worksheet Patient Problems: Problems Problem Status Onset Abdominal pain Acute Retroperitoneal air Acute UTI (urinary tract infection) Acute Calculus of left kidney Acute
--- NOTE | 2017-11-25 15:03 | GCON ---
REASON FOR CONSULT: Question left ureteral perforation. HPI: This is a pleasant 47-year-old male who has previously been seen in our office for a history of kidney stones. He recently had lithotripsy and a stent placement on 11/[address] Brooke for a kid wolfgang stone. Reports that since then, he has been having ongoing severe left-sided abdominal pain. Wh en his pain failed to improve, patient presented to the emergency room. Also feels like he has bloat and constipation. He is denying fever and chills. Has had off and on gross hematuria in the settin g of a kidney stone and a stent. ALLERGIES: No known drug allergies. MEDICATIONS: Ibuprofen. PAST MEDICAL HISTORY: Kidney stones. PAST SURGICAL HISTORY: Hernia, vasectomy. SOCIAL HISTORY: Moderate alcohol use. Does have children and is . Former tobacco user. Den ies illicit drugs. FAMILY HISTORY: Kidney stones. PHYSICAL EXAM: VITAL SIGNS: Blood pressure 115/74, heart rate 76, respirations 15, O2 94 on room ai r, temperature 37.2 at the time of examination. GENERAL: This is a well-developed, well-nourished m andressa in no acute distress. HEENT: Normocephalic, atraumatic. Extraocular movements intact. NECK: Supple. No lymphadenopathy. Trachea midline. RESPIRATORY: Normal breath sounds. No accessory res piratory muscle use. CARDIAC: Regular rate and rhythm. No lower extremity edema. GI: Abdomen was rotund with no hepatosplenomegaly. Mildly distended to palpation. : No CVA tenderness at the ti me of palpation. INTEGUMENT: Patient was somewhat pale. No obvious rashes or lesions. MUSCULOSKEL ETAL: He was examined while supine, moving upper extremities without difficulty. NEURO: He is aler t and oriented. Affect appropriate to situation. LABS: His white blood cell count is now 10.5, hemoglobin 15, hematocrit 42, platelets 176. Chemistr y: Sodium 139, potassium 4, chloride 104, carbon dioxide 26, anion gap 9, BUN 12, creatinine 0.9, gl ucose 101, calcium 8.7. His urinalysis is positive for 3+ blood, 2.2+ leuks, 1+ bacteria; a culture is pending. Dr. Pompa and I reviewed his CAT scan in detail, which shows a left ureteral stent, left-sided kidney stones, and a large amount of retroperitoneal fluid and gas suggestive of perforation versus early a bscess. Also has kidney stones on the right side. ASSESSMENT: Ureteral perforation. PLAN: This case has been reviewed in detail with Dr. Pompa, as we were asked to consult on the patie nt. When I presented, they had requested that our office see them for another opinion on the situati on. The patient has elected to pursue followup with Dr. Pompa's office, and a CT with delayed contra st through the kidneys is ordered at this point to assess anatomy. Recommend continued monitoring of labs and vitals, and we will follow up with the patient once this imaging has been performed. /[id number]/MODL
[2017-11-26] MEDS: TAMSULOSIN HCL 0.4 MG CAP PO SCH (09:01)
[2017-11-26] MEDS: SENNOSIDES/DOCUSATE SODIUM TAB PO SCH (09:04)
[2017-11-26 09:48] LABS: PLATELET COUNT 198 10^3/uL (150-400)
--- NOTE | 2017-11-26 11:40 | SOAPPROG ---
SOAP Progress Note Assessment/Plan: Assessment: Ureteral perforation Plan: Case reviewed in detail with Dr Pompa and patient. Patient is pain free with stable labs and feels comfortable being d/c home. Return to office with cystogram prior and for possible stent removal in 10 days. If pain reoccurs, recommend he call office to consider catheter placement. 11/26/17 11:35 Subjective: No pain. Belly feels less bloated Objective: Vital Signs Temp Pulse Resp BP Pulse Ox 36.9 C 65 17 141/86 H 94 11/26/17 07:26 11/26/17 07:26 11/26/17 07:26 11/26/17 07:26 11/26/17 07:26 Laboratory Results 11/26/17 09:40 11/26/17 09:40 11/25/17 11/26/17 11/27/17 05:59 05:59 05:59 Intake Total 1500 1450 Output Total 860 Balance 1500 590 Physical Exam - Physical Exam General Appearance: alert, no apparent distress Respiratory: normal breath sounds Abdomen: normal bowel sounds, soft ICD10 Worksheet Patient Problems: Problems Problem Status Onset Abdominal pain Acute Retroperitoneal air Acute UTI (urinary tract infection) Acute Calculus of left kidney Acute
[2017-11-26 12:06] VITALS: BP 133/80
--- NOTE | 2017-11-26 13:46 | PDDCSUM ---
Discharge Summary Discharge Summary: 47 yo M w/ hx of urolithiasis and recent stent placement presents with abdominal pain and found to have retroperitoneal free air and left ureteral rupture. Dr. Pompa was consulted. Conservative management was followed. No surgical procedures were performed. He is no longer symptomatic. The plan is for the pt to discharge and f/u with Dr. Pompa. If he has recurrence of pain, he is to return to the E.D. He was empirically started on Rocephin and at the time of discharge he will empirically be continued on Keflex for 7 days. DDx: Ureteral Rupture Abd Pain Pyuria EXAM: NAD AAOX3 RRR CTA B S/NT/ND NO LE EDEMA MEDS: SEE MED REC F/U: PER ABOVE TOTAL TIME SPENT ON D/C IS 35 MINS
== END 2017-11-26 14:25 | disposition home or self-care (01) ==
LOC: F2W 03:46
PROVIDERS: ADMIT Student in an Organized Health Care Education/Training Program; ATTEND Family Medicine
DX: N99.89 Other postprocedural complications and disorders of genitourinary system (principal); N30.01 Acute cystitis with hematuria; R10.32 Left lower quadrant pain; N20.0 Calculus of kidney; E86.9 Volume depletion, unspecified; Z87.891 Personal history of nicotine dependence
CPT/HCPCS: 74018; 74177; 96361; 96365; 96375; 96376; 99285; G0378; J0696; J1170; J2270; Q9967

== ENCOUNTER → 2018-01-19 | Outpatient (CLI) | payer OTHER | LOC: FIMAGING 12:23 | PROVIDERS: ATTEND Specialist | DX: N20.1 Calculus of ureter (principal); N20.0 Calculus of kidney ==

== ENCOUNTER → 2018-02-08 | Outpatient (CLI) | payer OTHER ==
[~2018-02-08] MED LIST: FUROSEMIDE 40 MG/4 ML VIAL ONE
== END ==
LOC: FIMAGING 10:11
PROVIDERS: ATTEND Specialist
DX: N20.0 Calculus of kidney (principal)
CPT/HCPCS: 78708; A9562; J1940

== ENCOUNTER → 2018-04-27 | Outpatient (CLI) | payer OTHER | LOC: FIMAGING 08:35 | PROVIDERS: ATTEND Specialist | DX: N20.2 Calculus of kidney with calculus of ureter (principal) ==